=== PATIENT | male | born 2000 | race American Indian/Alaskan Native ===

== ENCOUNTER 2021-05-10 18:55 | Emergency (ER) | payer SELFPAY ==
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
== END 2021-05-11 00:35 ==
LOC: EDBD → ED 18:55
DX: S21.332A Puncture wound without foreign body of left front wall of thorax with penetration into thoracic cavity, initial encounter (principal); S21.331A Puncture wound without foreign body of right front wall of thorax with penetration into thoracic cavity, initial encounter; I46.8 Cardiac arrest due to other underlying condition
CPT/HCPCS: 32551; 36430; 82962; 86850; 86900; 86901; 86920; 92950; 99285; P9016